=== PATIENT | male | born 1955 | race Caucasian/White ===

== ENCOUNTER 2023-12-04 17:41 | Inpatient (IN) | payer MEDICARE, MEDICAID ==
[2023-12-04 18:42] LABS: #Monocytes 0.3 thou/uL (0.11-0.59); #Neutrophils 18.9 thou/uL (1.40-6.50); %Basophils 0.2 % (0.0-1.0); %Lymphocytes 2.6 % (21.0-51.0); %Monocytes 1.5 % (0.0-10.0); %Neutrophils 94.5 % (42.0-75.0); Hemoglobin 12.4 g/dL (14.0-18.0); Mean Corpuscular HGB CONC 32.6 g/dL (32.0-36.0); Mean Corpuscular Hemoglobin 34.4 pg (27.0-31.0); Mean Corpuscular Volume 105.6 fl (78.0-98.0); Mean Platelet Volume 9.4 fL (7.4-10.4); Platelet Count 307 10x3/uL (130-400); RBC Distribution Width 12.2 % (11.5-14.5); White Blood Cell (WBC) Count 19.9 10x3/uL (4.8-10.8)
[2023-12-04 18:59] LABS: ALT (SGPT) 26 U/L (8-55); AST (SGOT) 17 U/L (5-34); Albumin 3.6 g/dL (3.4-4.8); Alkaline Phosphatase 92 U/L (40-110); Anion Gap 16 mmol/L (10-20); BUN (Urea Nitrogen) 62 mg/dL (8.4-25.7); Bilirubin, Total 0.4 mg/dL (0.2-1.2); Calc. Creatinine Clearance 0 mL/min (70-130); Calcium 8.5 mg/dL (7.8-10.44); Carbon Dioxide 16 mmol/L (23-31); Chloride 109 mmol/L (98-107); Estimated GFR 29; Globulin 3.5 g/dL (2.4-3.5); Glucose 127 mg/dL (80-115); Potassium 5.6 mmol/L (3.5-5.1); Protein, Total 7.1 g/dL (5.8-8.1); Sodium 135 mmol/L (136-145)
[2023-12-04 19:15] LABS: INR-International Normal Ratio 1.2; Prothrombin Time 14.7 sec (12.0-14.7)
[2023-12-04 19:16] LABS: PTT 36.3 sec (22.9-36.1)
[2023-12-04] MEDS ORDERED: Ondansetron ODT 4 MG TAB SL PRN (21:00)
[2023-12-04] MEDS ORDERED: Ondansetron PF 4 MG/2 ML Vial IVP PRN (21:00)
[2023-12-04] MEDS ORDERED: Acetaminophen 325 MG TAB PO PRN (21:00)
[2023-12-04] MEDS ORDERED: Lorazepam 2 MG/ML VIAL SLOW IVP PRN (21:06)
[2023-12-04] MEDS ORDERED: Heparin 10,000 UNITS/ 10 ML VIAL SLOW IVP SCH (21:15)
[2023-12-04] MEDS ORDERED: Heparin 5,000 UNITS/ML VIAL ONE (21:38)
[2023-12-04] MEDS ORDERED: Heparin 25,000 units/D5W 500 ML ONE (21:39)
[2023-12-04 21:47] LABS: Hematocrit 35.2 % (42.0-52.0); Hemoglobin 11.6 g/dL (14.0-18.0); Platelet Count 308 10x3/uL (130-400)
[2023-12-04 22:40] LABS: Bacteria/HPF None Seen HPF (None Seen); Bilirubin Negative (Negative); Blood, Urine Negative (Negative); CAUTI Indications for Culture Alt mental st,lethar; Clarity Clear (Clear); Glucose, Urine (Dipstick) Normal (Negative); Ketone, Urine Negative (Negative); Leukocyte Negative Leu/uL (Negative); Nitrite Negative (Negative); Protein, Urine (Dipstick) Negative (Neg-Trace); RBC/HPF 0-3 HPF (0-3); Specific Gravity, Urine 1.011 (1.002-1.036); Squamous Epithelial None Seen HPF (0-3); Urobilinogen Normal mg/dL (Less than 2); WBC/HPF 0-3 HPF (0-3); pH, Urine 5.5 (5.0-9.0)
[2023-12-04 22:44] LABS: Urine Culture Reflex No No
[2023-12-05] MEDS: Sodium Bicarbonate 150 MEQ in Dextrose 5% in Water 1,000 ML IV SCH (00:21)
[2023-12-05 00:41] VITALS: BMI 26.0
[2023-12-05 04:40] LABS: #Monocytes 0.9 thou/uL (0.11-0.59); #Neutrophils 15.3 thou/uL (1.40-6.50); %Basophils 0.1 % (0.0-1.0); %Lymphocytes 5.8 % (21.0-51.0); %Monocytes 5.2 % (0.0-10.0); %Neutrophils 87.9 % (42.0-75.0); Hemoglobin 12.2 g/dL (14.0-18.0); Mean Corpuscular HGB CONC 32.1 g/dL (32.0-36.0); Mean Corpuscular Hemoglobin 34.9 pg (27.0-31.0); Mean Corpuscular Volume 108.6 fl (78.0-98.0); Mean Platelet Volume 9.3 fL (7.4-10.4); Platelet Count 265 10x3/uL (130-400); RBC Distribution Width 12.3 % (11.5-14.5); White Blood Cell (WBC) Count 17.3 10x3/uL (4.8-10.8)
[2023-12-05 05:03] LABS: Anion Gap 15 mmol/L (10-20); BUN (Urea Nitrogen) 59 mg/dL (8.4-25.7); Calc. Creatinine Clearance 38 mL/min (70-130); Calcium 8.3 mg/dL (7.8-10.44); Carbon Dioxide 19 mmol/L (23-31); Chloride 114 mmol/L (98-107); Estimated GFR 37; Glucose 134 mg/dL (80-115); Potassium 4.6 mmol/L (3.5-5.1); Sodium 143 mmol/L (136-145)
[2023-12-05 05:59] LABS: PTT Greater than 250.0 sec (22.9-36.1)
[2023-12-05 06:11] LABS: Bacteria/HPF None Seen HPF (None Seen); Bilirubin Negative (Negative); Blood, Urine 3+ (Negative); CAUTI Indications for Culture Fever or rigors; Clarity Turbid (Clear); Glucose, Urine (Dipstick) Normal (Negative); Ketone, Urine Negative (Negative); Leukocyte 75 Leu/uL (Negative); Nitrite Negative (Negative); Protein, Urine (Dipstick) 50 mg/dL (Neg-Trace); RBC/HPF Greater than 50 HPF (0-3); Specific Gravity, Urine 1.011 (1.002-1.036); Squamous Epithelial None Seen HPF (0-3); Urobilinogen Normal mg/dL (Less than 2); WBC/HPF Greater than 50 HPF (0-3); pH, Urine 5.5 (5.0-9.0)
[2023-12-05 06:12] LABS: Urine Culture Reflex Yes Yes
[2023-12-05] MEDS: Ipratropium/Albuterol 3 ML NEB ONE (11:25)
[2023-12-05] MEDS: methylPREDNISolone Sod Succ 40 MG VIAL IVP SCH ×2 (11:25→18:19)
[2023-12-05] MEDS: Ipratropium/Albuterol 3 ML NEB NEB SCH (13:05)
[2023-12-05] MEDS: guaiFENesin/Codeine 200 mg/20 mg 10 ml Cup PO PRN (18:19)
[2023-12-05] MEDS: Albuterol 2.5 MG (3 mL) NEB NEB PRN (20:01)
[2023-12-05] MEDS: Hydrocortisone 1% Cream 30 GM TUBE TOP SCH (20:28)
[2023-12-05] MEDS: Heparin 25,000 units/D5W 500 ML IVPB SCH (20:32)
[2023-12-06 04:33] LABS: #Monocytes 0.3 thou/uL (0.11-0.59); #Neutrophils 12.7 thou/uL (1.40-6.50); %Basophils 0.2 % (0.0-1.0); %Lymphocytes 4.5 % (21.0-51.0); %Monocytes 2.1 % (0.0-10.0); %Neutrophils 91.5 % (42.0-75.0); Hematocrit 37.4 % (42.0-52.0); Hemoglobin 12.1 g/dL (14.0-18.0); Mean Corpuscular HGB CONC 32.4 g/dL (32.0-36.0); Mean Corpuscular Hemoglobin 34.9 pg (27.0-31.0); Mean Corpuscular Volume 107.8 fl (78.0-98.0); Mean Platelet Volume 10.2 fL (7.4-10.4); Platelet Count 258 10x3/uL (130-400); RBC Distribution Width 12.2 % (11.5-14.5); Red Blood Cell (RBC) Count 3.47 mill/uL (4.70-6.10); White Blood Cell (WBC) Count 13.9 10x3/uL (4.8-10.8)
[2023-12-06 04:59] LABS: Anion Gap 17 mmol/L (10-20); BUN (Urea Nitrogen) 37 mg/dL (8.4-25.7); Calc. Creatinine Clearance 65 mL/min (70-130); Calcium 8.6 mg/dL (7.8-10.44); Carbon Dioxide 19 mmol/L (23-31); Chloride 109 mmol/L (98-107); Estimated GFR 71; Glucose 172 mg/dL (80-115); Potassium 3.8 mmol/L (3.5-5.1); Sodium 141 mmol/L (136-145)
[2023-12-06] MEDS: Levothyroxine Sodium 112 MCG TAB PO SCH (05:44)
[2023-12-06] MEDS: Ondansetron ODT 4 MG TAB PO PRN (08:54)
[2023-12-06] MEDS: Cyanocobalamin (Vitamin B-12) 1,000 MCG TAB PO SCH (08:54)
[2023-12-06] MEDS: Loratadine 10 MG TAB PO SCH (08:54)
[2023-12-06] MEDS: Folic Acid 1 MG TAB PO SCH (08:54)
[2023-12-06] MEDS: Ferrous Sulfate 325 MG TAB PO SCH (08:54)
[2023-12-06] MEDS ORDERED: predniSONE 50 MG TAB PO SCH (09:00)
[2023-12-06] MEDS: Loperamide HCl 2 MG CAP PO PRN (09:10)
[2023-12-06 10:40] LABS: PTT 128.3 sec (22.9-36.1)
[2023-12-06] MEDS: cefTRIAXone\\ROCEPHIN 1 GM in Sodium Chloride 0.9% 100 ML IVPB SCH (12:09)
[2023-12-06] MEDS: Apixaban 5 MG TAB PO SCH (20:02)
[2023-12-06 21:33] LABS: Hemoglobin 12.3 g/dL (14.0-18.0); Platelet Count 316 10x3/uL (130-400)
[2023-12-07 04:41] LABS: #Monocytes 0.6 thou/uL (0.11-0.59); #Neutrophils 17.1 thou/uL (1.40-6.50); %Basophils 0.2 % (0.0-1.0); %Eosinophils 0.1 % (0.0-10.0); %Lymphocytes 4.2 % (21.0-51.0); %Monocytes 2.9 % (0.0-10.0); %Neutrophils 91.2 % (42.0-75.0); Hematocrit 34.5 % (42.0-52.0); Hemoglobin 11.5 g/dL (14.0-18.0); Mean Corpuscular HGB CONC 33.3 g/dL (32.0-36.0); Mean Corpuscular Hemoglobin 34.7 pg (27.0-31.0); Mean Corpuscular Volume 104.2 fl (78.0-98.0); Mean Platelet Volume 10.8 fL (7.4-10.4); Platelet Count 296 10x3/uL (130-400); RBC Distribution Width 11.9 % (11.5-14.5); Red Blood Cell (RBC) Count 3.31 mill/uL (4.70-6.10); White Blood Cell (WBC) Count 18.8 10x3/uL (4.8-10.8)
[2023-12-07 05:20] LABS: Anion Gap 16 mmol/L (10-20); BUN (Urea Nitrogen) 34 mg/dL (8.4-25.7); Calc. Creatinine Clearance 73 mL/min (70-130); Calcium 8.5 mg/dL (7.8-10.44); Carbon Dioxide 21 mmol/L (23-31); Chloride 110 mmol/L (98-107); Estimated GFR 82; Glucose 151 mg/dL (80-115); Potassium 4.2 mmol/L (3.5-5.1); Sodium 143 mmol/L (136-145)
[2023-12-07] MEDS: Ondansetron PF 4 MG/2 ML Vial IVP PRN (19:02)
[2023-12-07] MEDS ORDERED: Sodium Chloride 0.9% 1,000 ML IV SCH ×2 (19:45→21:15)
[2023-12-07 19:56] LABS: Hematocrit 38.7 % (42.0-52.0); Hemoglobin 12.7 g/dL (14.0-18.0)
[2023-12-07 20:00] LABS: Platelet Count 420 10x3/uL (130-400)
[2023-12-07 20:19] LABS: Anion Gap 14 mmol/L (10-20); BUN (Urea Nitrogen) 35 mg/dL (8.4-25.7); Calc. Creatinine Clearance 72 mL/min (70-130); Calcium 8.8 mg/dL (7.8-10.44); Carbon Dioxide 22 mmol/L (23-31); Chloride 105 mmol/L (98-107); Estimated GFR 81; Glucose 153 mg/dL (80-115); Potassium 3.6 mmol/L (3.5-5.1); Sodium 137 mmol/L (136-145)
[2023-12-07] MEDS: Pantoprazole 40 MG VIAL IVP SCH (21:24)
[2023-12-07] MEDS: Sodium Chloride 0.9% 1,000 ML IV SCH ×2 (21:25→23:22)
[2023-12-07] MEDS: Pantoprazole 80 MG, Admixture Fee 1 EACH in Sodium Chloride 0.9% 100 ML IVPB SCH (23:18)
[2023-12-07 23:22] LABS: INR-International Normal Ratio 1.6; Prothrombin Time 18.9 sec (12.0-14.7)
[2023-12-07 23:23] LABS: PTT 34.1 sec (22.9-36.1)
[2023-12-07 23:44] LABS: Magnesium 1.8 mg/dL (1.6-2.6); Phosphorus 2.7 mg/dL (2.3-4.7)
[2023-12-08 05:05] LABS: #Monocytes 0.7 thou/uL (0.11-0.59); #Neutrophils 17.5 thou/uL (1.40-6.50); %Basophils 0.2 % (0.0-1.0); %Lymphocytes 3.7 % (21.0-51.0); %Monocytes 3.7 % (0.0-10.0); %Neutrophils 90.3 % (42.0-75.0); Hematocrit 34.2 % (42.0-52.0); Hemoglobin 11.4 g/dL (14.0-18.0); Mean Corpuscular HGB CONC 33.3 g/dL (32.0-36.0); Mean Corpuscular Hemoglobin 34.8 pg (27.0-31.0); Mean Corpuscular Volume 104.3 fl (78.0-98.0); Mean Platelet Volume 9.8 fL (7.4-10.4); Platelet Count 334 10x3/uL (130-400); RBC Distribution Width 11.9 % (11.5-14.5); Red Blood Cell (RBC) Count 3.28 mill/uL (4.70-6.10); White Blood Cell (WBC) Count 19.3 10x3/uL (4.8-10.8)
[2023-12-08 05:44] LABS: Phosphorus 2.7 mg/dL (2.3-4.7)
[2023-12-08 05:46] LABS: Anion Gap 10 mmol/L (10-20); BUN (Urea Nitrogen) 37 mg/dL (8.4-25.7); Calc. Creatinine Clearance 74 mL/min (70-130); Calcium 8.2 mg/dL (7.8-10.44); Carbon Dioxide 23 mmol/L (23-31); Chloride 109 mmol/L (98-107); Estimated GFR 83; Glucose 144 mg/dL (80-115); Potassium 3.4 mmol/L (3.5-5.1); Sodium 139 mmol/L (136-145)
[2023-12-08] MEDS ORDERED: Piperacillin/Tazobactam 3.375 GM in Sodium Chloride 0.9% 100 ML IVPB SCH (10:45)
[2023-12-08] MEDS: Piperacillin/Tazobactam 3.375 GM in Sodium Chloride 0.9% 100 ML IVPB SCH ×2 (13:05→17:28)
[2023-12-08] MEDS: Potassium Chloride 20 MEQ TAB PO SCH (17:29)
[2023-12-08] MEDS: Potassium Chloride 20 MEQ in Premix 1 BAG IVPB SCH (17:48)
[2023-12-08] MEDS ORDERED: Lidocaine 1% PF 5 ML VIAL ONE (18:47)
[2023-12-08] MEDS ORDERED: PROPOFOL 40 ML ONE (18:47)
[2023-12-08] MEDS ORDERED: Rocuronium Bromide 10 MG/ML (10ML VIAL) ONE (19:01)
[2023-12-08] MEDS ORDERED: fentaNYL 50 mcg/mL 1 mL Vial ONE (19:01)
[2023-12-08] MEDS ORDERED: Dexamethasone 20 MG/5 ML VIAL ONE (19:01)
[2023-12-08] MEDS ORDERED: Ondansetron PF 4 MG/2 ML Vial ONE (19:01)
[2023-12-08] MEDS ORDERED: ePHEDrine Sulfate 50 MG/10 ML VIAL ONE (19:48)
[2023-12-08] MEDS ORDERED: Sodium Chloride 0.9% 100 ML ONE (19:50)
[2023-12-08] MEDS ORDERED: Phenylephrine 10 MG/ML VIAL ONE (19:50)
[2023-12-08] MEDS ORDERED: SUGAMMADEX SODIUM 200 MG/2 ML VIAL ONE (20:20)
[2023-12-08] MEDS ORDERED: Promethazine HCl 25 MG/ML VIAL IM PRN (20:36)
[2023-12-08] MEDS ORDERED: Ondansetron HCl/PF 4 MG/2 ML Vial IVP PRN (20:36)
[2023-12-08] MEDS: Bisacodyl 10 MG SUPP PR SCH (21:21)
[2023-12-08 21:43] LABS: Hematocrit 34.7 % (42.0-52.0); Hemoglobin 11.5 g/dL (14.0-18.0); Platelet Count 299 10x3/uL (130-400)
[2023-12-08] MEDS: FLU VACC QS2023(65UP)/MF59C/PF 60 MCG/0.5 ML SYRINGE IM ONE (21:43)
[2023-12-09 04:16] LABS: #Basophils 0.1 thou/uL (0.0-0.2); #Monocytes 0.7 thou/uL (0.11-0.59); #Neutrophils 17.3 thou/uL (1.40-6.50); %Basophils 0.3 % (0.0-1.0); %Lymphocytes 4.6 % (21.0-51.0); %Monocytes 3.7 % (0.0-10.0); %Neutrophils 89.3 % (42.0-75.0); Hematocrit 34.2 % (42.0-52.0); Mean Corpuscular HGB CONC 32.2 g/dL (32.0-36.0); Mean Corpuscular Hemoglobin 34.3 pg (27.0-31.0); Mean Corpuscular Volume 106.5 fl (78.0-98.0); Mean Platelet Volume 9.6 fL (7.4-10.4); Platelet Count 284 10x3/uL (130-400); Red Blood Cell (RBC) Count 3.21 mill/uL (4.70-6.10); White Blood Cell (WBC) Count 19.4 10x3/uL (4.8-10.8)
[2023-12-09 04:31] LABS: Anion Gap 9 mmol/L (10-20); BUN (Urea Nitrogen) 30 mg/dL (8.4-25.7); Calc. Creatinine Clearance 82 mL/min (70-130); Calcium 7.1 mg/dL (7.8-10.44); Carbon Dioxide 22 mmol/L (23-31); Chloride 119 mmol/L (98-107); Estimated GFR 93; Glucose 121 mg/dL (80-115); Potassium 3.8 mmol/L (3.5-5.1); Sodium 146 mmol/L (136-145)
[2023-12-09] MEDS: Piperacillin/Tazobactam 3.375 GM in Sodium Chloride 0.9% 100 ML IVPB SCH (05:21)
[2023-12-09] MEDS ORDERED: Ipratropium/Albuterol 3 ML NEB NEB PRN (07:56)
[2023-12-09] MEDS ORDERED: Bisacodyl 10 MG SUPP PR SCH (09:00)
[2023-12-09] MEDS: Dextrose 5% in Water 1,000 ML IV SCH (14:00)
[2023-12-10 07:35] LABS: #Eosinphils 0.2 thou/uL (0.0-0.7); #Monocytes 0.9 thou/uL (0.11-0.59); #Neutrophils 14.7 thou/uL (1.40-6.50); %Basophils 0.2 % (0.0-1.0); %Eosinophils 1.3 % (0.0-10.0); %Lymphocytes 11.8 % (21.0-51.0); %Monocytes 4.9 % (0.0-10.0); %Neutrophils 80.3 % (42.0-75.0); Hematocrit 29.9 % (42.0-52.0); Mean Corpuscular HGB CONC 33.4 g/dL (32.0-36.0); Mean Corpuscular Hemoglobin 34.6 pg (27.0-31.0); Mean Corpuscular Volume 103.5 fl (78.0-98.0); Mean Platelet Volume 9.5 fL (7.4-10.4); Platelet Count 228 10x3/uL (130-400); RBC Distribution Width 11.9 % (11.5-14.5); Red Blood Cell (RBC) Count 2.89 mill/uL (4.70-6.10); White Blood Cell (WBC) Count 18.3 10x3/uL (4.8-10.8)
[2023-12-10 07:45] LABS: Chloride 112 mmol/L (98-107); Potassium 2.8 mmol/L (3.5-5.1); Sodium 140 mmol/L (136-145)
[2023-12-10 07:46] LABS: Glucose 112 mg/dL (80-115)
[2023-12-10 07:47] LABS: Anion Gap 8 mmol/L (10-20); Carbon Dioxide 23 mmol/L (23-31)
[2023-12-10 07:49] LABS: Calc. Creatinine Clearance 98 mL/min (70-130); Estimated GFR 98
[2023-12-10 07:50] LABS: BUN (Urea Nitrogen) 16 mg/dL (8.4-25.7)
[2023-12-10 07:56] LABS: Calcium 6.4 mg/dL (7.8-10.44)
[2023-12-10] MEDS: CALCIUM GLUC 1 GM/NS 50 ML 1 GM in Premix 1 BAG IVPB SCH (10:32)
[2023-12-10] MEDS: Potassium Chloride 20 MEQ TAB PO SCH (10:34)
[2023-12-10] MEDS: Calcium Gluc 4.6 MEQ/10 ML (100 MG/ML) SLOW IVP ONE (10:44)
[2023-12-11 10:38] LABS: #Eosinphils 0.6 thou/uL (0.0-0.7); #Monocytes 0.7 thou/uL (0.11-0.59); #Neutrophils 21.1 thou/uL (1.40-6.50); %Basophils 0.1 % (0.0-1.0); %Eosinophils 2.3 % (0.0-10.0); %Lymphocytes 6.2 % (21.0-51.0); %Monocytes 2.9 % (0.0-10.0); %Neutrophils 87.3 % (42.0-75.0); Hematocrit 32.8 % (42.0-52.0); Hemoglobin 11.1 g/dL (14.0-18.0); Mean Corpuscular HGB CONC 33.8 g/dL (32.0-36.0); Mean Corpuscular Hemoglobin 34.7 pg (27.0-31.0); Mean Corpuscular Volume 102.5 fl (78.0-98.0); Mean Platelet Volume 9.6 fL (7.4-10.4); Platelet Count 237 10x3/uL (130-400); RBC Distribution Width 11.6 % (11.5-14.5); White Blood Cell (WBC) Count 24.2 10x3/uL (4.8-10.8)
[2023-12-11 11:01] LABS: Anion Gap 8 mmol/L (10-20); BUN (Urea Nitrogen) 10 mg/dL (8.4-25.7); Calc. Creatinine Clearance 107 mL/min (70-130); Carbon Dioxide 23 mmol/L (23-31); Chloride 108 mmol/L (98-107); Estimated GFR 101; Glucose 118 mg/dL (80-115); Potassium 2.9 mmol/L (3.5-5.1); Sodium 136 mmol/L (136-145)
[2023-12-11 11:04] LABS: Calcium 6.7 mg/dL (7.8-10.44)
[2023-12-11] MEDS ORDERED: Electrolyte Replacement Protocol 1 EACH FS SCH (12:45)
[2023-12-11] MEDS: Potassium Bicarbonate/Cit Ac 20 MEQ TAB PO SCH (14:28)
[2023-12-11 15:46] LABS: Magnesium 1.5 mg/dL (1.6-2.6)
[2023-12-11 16:50] LABS: Bacteria/HPF None Seen HPF (None Seen); Bilirubin Negative (Negative); Blood, Urine 3+ (Negative); CAUTI Indications for Culture Acute Hematuria; Clarity Turbid (Clear); Glucose, Urine (Dipstick) 50 mg/dL (Negative); Ketone, Urine 10 mg/dL (Negative); Leukocyte 25 Leu/uL (Negative); Nitrite Negative (Negative); Protein, Urine (Dipstick) 200 mg/dL (Neg-Trace); RBC/HPF Greater than 50 HPF (0-3); Specific Gravity, Urine 1.017 (1.002-1.036); Squamous Epithelial None Seen HPF (0-3); Urobilinogen Normal mg/dL (Less than 2); pH, Urine 6.5 (5.0-9.0)
[2023-12-11 16:53] LABS: Urine Culture Reflex No No
[2023-12-11] MEDS: Calcium Carbonate 500 MG TAB PO SCH (17:05)
[2023-12-11 17:07] LABS: Thyroid Stimulating Hormone 5.0587 uIU/mL (0.35-4.94); Vitamin D, 25 Hydroxy 5.7 ng/ml (> 30.0)
[2023-12-11] MEDS: Famotidine 20 MG TAB PO SCH (20:31)
[2023-12-12 07:27] LABS: #Basophils 0.1 thou/uL (0.0-0.2); #Eosinphils 0.6 thou/uL (0.0-0.7); #Monocytes 0.9 thou/uL (0.11-0.59); #Neutrophils 20.8 thou/uL (1.40-6.50); %Basophils 0.2 % (0.0-1.0); %Eosinophils 2.6 % (0.0-10.0); %Lymphocytes 7.6 % (21.0-51.0); %Monocytes 3.8 % (0.0-10.0); %Neutrophils 84.5 % (42.0-75.0); Hematocrit 30.9 % (42.0-52.0); Hemoglobin 10.7 g/dL (14.0-18.0); Mean Corpuscular HGB CONC 34.6 g/dL (32.0-36.0); Mean Corpuscular Hemoglobin 34.4 pg (27.0-31.0); Mean Platelet Volume 10.3 fL (7.4-10.4); Platelet Count 231 10x3/uL (130-400); RBC Distribution Width 11.6 % (11.5-14.5); Red Blood Cell (RBC) Count 3.11 mill/uL (4.70-6.10); White Blood Cell (WBC) Count 24.6 10x3/uL (4.8-10.8)
[2023-12-12 07:45] LABS: Mean Corpuscular Volume 99.4 fl (78.0-98.0)
[2023-12-12 07:53] LABS: Anion Gap 14 mmol/L (10-20); BUN (Urea Nitrogen) 9 mg/dL (8.4-25.7); Calc. Creatinine Clearance 125 mL/min (70-130); Carbon Dioxide 20 mmol/L (23-31); Chloride 107 mmol/L (98-107); Estimated GFR 106; Glucose 82 mg/dL (80-115); Potassium 3.2 mmol/L (3.5-5.1); Sodium 138 mmol/L (136-145)
[2023-12-12 08:04] LABS: Calcium 6.7 mg/dL (7.8-10.44)
[2023-12-12 08:51] LABS: Magnesium 1.4 mg/dL (1.6-2.6)
[2023-12-12 08:58] LABS: Phosphorus 1.5 mg/dL (2.3-4.7)
[2023-12-12] MEDS: Calcitriol 0.25 MCG CAP PO SCH (09:15)
[2023-12-12] MEDS: Calcium Carbonate 500 MG ChewTAB PO SCH (09:15)
[2023-12-12] MEDS: Ergocalciferol 1.25 MG(50,000 UNITS) CAP PO SCH (09:15)
[2023-12-12] MEDS: PHOS-NAK 1 PKT PACK PO SCH (09:43)
[2023-12-12] MEDS: Potassium Chloride 20 MEQ TAB PO SCH (10:02)
[2023-12-12] MEDS: Magnesium Sulfate In Water 4 GM in Premix 1 BAG IVPB SCH (10:24)
[2023-12-13] MEDS: Levothyroxine Sodium 125 MCG TAB PO SCH (05:30)
[2023-12-13 05:43] LABS: #Eosinphils 0.7 thou/uL (0.0-0.7); #Neutrophils 18.3 thou/uL (1.40-6.50); %Basophils 0.2 % (0.0-1.0); %Eosinophils 3.2 % (0.0-10.0); %Lymphocytes 8.7 % (21.0-51.0); %Monocytes 4.6 % (0.0-10.0); %Neutrophils 81.5 % (42.0-75.0); Hematocrit 29.2 % (42.0-52.0); Mean Corpuscular HGB CONC 34.2 g/dL (32.0-36.0); Mean Corpuscular Hemoglobin 34.4 pg (27.0-31.0); Mean Corpuscular Volume 100.3 fl (78.0-98.0); Mean Platelet Volume 10.6 fL (7.4-10.4); Platelet Count 244 10x3/uL (130-400); RBC Distribution Width 11.9 % (11.5-14.5); Red Blood Cell (RBC) Count 2.91 mill/uL (4.70-6.10); White Blood Cell (WBC) Count 22.5 10x3/uL (4.8-10.8)
[2023-12-13 06:16] LABS: Anion Gap 13 mmol/L (10-20); BUN (Urea Nitrogen) 7 mg/dL (8.4-25.7); Calc. Creatinine Clearance 125 mL/min (70-130); Carbon Dioxide 23 mmol/L (23-31); Chloride 106 mmol/L (98-107); Estimated GFR 106; Glucose 95 mg/dL (80-115); Phosphorus 1.8 mg/dL (2.3-4.7); Potassium 3.6 mmol/L (3.5-5.1); Sodium 138 mmol/L (136-145)
[2023-12-13 06:32] LABS: Calcium 6.7 mg/dL (7.8-10.44)
[2023-12-13 06:36] LABS: Free T4 (Free Thyroxine) 0.96 ng/dL (0.70-1.48)
[2023-12-13] MEDS: PHOS-NAK 1 PKT PACK PO SCH (09:26)
[2023-12-13] MEDS: Calcium Gluc 4.6 MEQ/10 ML (100 MG/ML) SLOW IVP ONE (16:14)
[2023-12-13] MEDS: CALCIUM GLUC 1 GM/NS 50 ML 1 GM in Premix 1 BAG IVPB SCH (17:12)
[2023-12-14 05:00] LABS: #Eosinphils 0.6 thou/uL (0.0-0.7); #Monocytes 1.2 thou/uL (0.11-0.59); #Neutrophils 13.4 thou/uL (1.40-6.50); %Basophils 0.2 % (0.0-1.0); %Eosinophils 3.1 % (0.0-10.0); %Lymphocytes 13.3 % (21.0-51.0); %Monocytes 6.6 % (0.0-10.0); %Neutrophils 75.2 % (42.0-75.0); Hematocrit 26.9 % (42.0-52.0); Hemoglobin 8.9 g/dL (14.0-18.0); Mean Corpuscular HGB CONC 33.1 g/dL (32.0-36.0); Mean Corpuscular Volume 102.7 fl (78.0-98.0); Mean Platelet Volume 10.2 fL (7.4-10.4); Platelet Count 266 10x3/uL (130-400); RBC Distribution Width 12.1 % (11.5-14.5); Red Blood Cell (RBC) Count 2.62 mill/uL (4.70-6.10); White Blood Cell (WBC) Count 17.8 10x3/uL (4.8-10.8)
[2023-12-14 05:19] LABS: Anion Gap 9 mmol/L (10-20); BUN (Urea Nitrogen) 5 mg/dL (8.4-25.7); Calc. Creatinine Clearance 145 mL/min (70-130); Calcium 7.2 mg/dL (7.8-10.44); Carbon Dioxide 27 mmol/L (23-31); Chloride 106 mmol/L (98-107); Estimated GFR 110; Glucose 98 mg/dL (80-115); Potassium 3.2 mmol/L (3.5-5.1); Sodium 139 mmol/L (136-145)
[2023-12-14] MEDS: Potassium Chloride 20 MEQ TAB PO SCH (08:39)
[2023-12-14] MEDS: Magnesium 2 GM/50 ML(in water) 2 GM in Premix 1 BAG IVPB SCH (11:33)
[2023-12-14] MEDS: Furosemide 20 MG (2 mL) VIAL SLOW IVP SCH (11:33)
[2023-12-14] MEDS: Acetaminophen 325 MG TAB PO PRN (20:24)
[2023-12-15 05:12] LABS: #Eosinphils 0.5 thou/uL (0.0-0.7); #Monocytes 1.1 thou/uL (0.11-0.59); #Neutrophils 11.9 thou/uL (1.40-6.50); %Basophils 0.1 % (0.0-1.0); %Eosinophils 3.2 % (0.0-10.0); %Lymphocytes 13.2 % (21.0-51.0); %Monocytes 7.1 % (0.0-10.0); %Neutrophils 74.9 % (42.0-75.0); Hematocrit 27.8 % (42.0-52.0); Hemoglobin 9.2 g/dL (14.0-18.0); Mean Corpuscular HGB CONC 33.1 g/dL (32.0-36.0); Mean Corpuscular Hemoglobin 34.5 pg (27.0-31.0); Mean Corpuscular Volume 104.1 fl (78.0-98.0); Mean Platelet Volume 10.1 fL (7.4-10.4); Platelet Count 272 10x3/uL (130-400); RBC Distribution Width 12.3 % (11.5-14.5); Red Blood Cell (RBC) Count 2.67 mill/uL (4.70-6.10); White Blood Cell (WBC) Count 15.9 10x3/uL (4.8-10.8)
[2023-12-15 05:51] LABS: Anion Gap 9 mmol/L (10-20); BUN (Urea Nitrogen) 5 mg/dL (8.4-25.7); Calc. Creatinine Clearance 142 mL/min (70-130); Calcium 7.9 mg/dL (7.8-10.44); Carbon Dioxide 26 mmol/L (23-31); Chloride 105 mmol/L (98-107); Estimated GFR 110; Glucose 102 mg/dL (80-115); Magnesium 1.9 mg/dL (1.6-2.6); Potassium 3.4 mmol/L (3.5-5.1); Sodium 137 mmol/L (136-145)
[2023-12-15 05:57] LABS: Phosphorus 1.9 mg/dL (2.3-4.7)
[2023-12-15] MEDS: Magnesium 2 GM/50 ML(in water) 2 GM in Premix 1 BAG IVPB SCH (09:42)
[2023-12-15] MEDS: Potassium Chloride 20 MEQ TAB PO SCH (09:44)
[2023-12-15] MEDS: PHOS-NAK 1 PKT PACK PO SCH (09:46)
[2023-12-15] MEDS: Furosemide 40 MG (4 mL) VIAL SLOW IVP SCH (11:17)
[2023-12-15 14:49] LABS: Potassium 3.6 mmol/L (3.5-5.1)
[2023-12-15] MEDS: Apixaban 5 MG TAB PO SCH (20:23)
[2023-12-16 06:26] LABS: #Eosinphils 0.4 thou/uL (0.0-0.7); #Monocytes 1.3 thou/uL (0.11-0.59); #Neutrophils 11.9 thou/uL (1.40-6.50); %Basophils 0.1 % (0.0-1.0); %Eosinophils 2.2 % (0.0-10.0); %Lymphocytes 12.8 % (21.0-51.0); %Monocytes 8.5 % (0.0-10.0); %Neutrophils 75.3 % (42.0-75.0); Hematocrit 26.9 % (42.0-52.0); Hemoglobin 8.9 g/dL (14.0-18.0); Mean Corpuscular HGB CONC 33.1 g/dL (32.0-36.0); Mean Corpuscular Hemoglobin 34.9 pg (27.0-31.0); Mean Corpuscular Volume 105.5 fl (78.0-98.0); Mean Platelet Volume 9.4 fL (7.4-10.4); Platelet Count 317 10x3/uL (130-400); RBC Distribution Width 12.7 % (11.5-14.5); Red Blood Cell (RBC) Count 2.55 mill/uL (4.70-6.10); White Blood Cell (WBC) Count 15.9 10x3/uL (4.8-10.8)
[2023-12-16 06:44] LABS: Anion Gap 11 mmol/L (10-20); BUN (Urea Nitrogen) 6 mg/dL (8.4-25.7); Calc. Creatinine Clearance 134 mL/min (70-130); Calcium 7.8 mg/dL (7.8-10.44); Carbon Dioxide 27 mmol/L (23-31); Chloride 104 mmol/L (98-107); Estimated GFR 108; Glucose 90 mg/dL (80-115); Magnesium 1.9 mg/dL (1.6-2.6); Phosphorus 2.6 mg/dL (2.3-4.7); Potassium 4.2 mmol/L (3.5-5.1); Sodium 138 mmol/L (136-145)
[2023-12-16] MEDS: Magnesium 2 GM/50 ML(in water) 2 GM in Premix 1 BAG IVPB SCH (08:36)
[2023-12-16] MEDS: Furosemide 40 MG (4 mL) VIAL SLOW IVP SCH (11:09)
[2023-12-17 05:06] LABS: #Eosinphils 0.4 thou/uL (0.0-0.7); #Monocytes 1.3 thou/uL (0.11-0.59); #Neutrophils 10.6 thou/uL (1.40-6.50); %Basophils 0.2 % (0.0-1.0); %Eosinophils 2.5 % (0.0-10.0); %Lymphocytes 13.3 % (21.0-51.0); %Monocytes 8.9 % (0.0-10.0); %Neutrophils 73.9 % (42.0-75.0); Hematocrit 27.5 % (42.0-52.0); Hemoglobin 9.1 g/dL (14.0-18.0); Mean Corpuscular HGB CONC 33.1 g/dL (32.0-36.0); Mean Corpuscular Hemoglobin 34.6 pg (27.0-31.0); Mean Corpuscular Volume 104.6 fl (78.0-98.0); Mean Platelet Volume 9.5 fL (7.4-10.4); Platelet Count 351 10x3/uL (130-400); RBC Distribution Width 12.9 % (11.5-14.5); Red Blood Cell (RBC) Count 2.63 mill/uL (4.70-6.10); White Blood Cell (WBC) Count 14.4 10x3/uL (4.8-10.8)
[2023-12-17 06:17] LABS: Anion Gap 15 mmol/L (10-20); BUN (Urea Nitrogen) 8 mg/dL (8.4-25.7); Calc. Creatinine Clearance 134 mL/min (70-130); Calcium 8.3 mg/dL (7.8-10.44); Carbon Dioxide 24 mmol/L (23-31); Chloride 102 mmol/L (98-107); Estimated GFR 108; Glucose 106 mg/dL (80-115); Potassium 3.5 mmol/L (3.5-5.1); Sodium 137 mmol/L (136-145)
[2023-12-17] MEDS: Potassium Chloride 20 MEQ TAB PO SCH (09:08)
[2023-12-17] MEDS: Potassium Bicarbonate/Cit Ac 20 MEQ TAB PO SCH (10:51)
[2023-12-17 16:31] VITALS: BP 124/76; TEMP 98.2
== END 2023-12-17 17:22 | DRG 299 ==
LOC: ERS 17:41 → 2NO 20:51 → T4-B 12-11 22:07
PROVIDERS: ADMIT Student in an Organized Health Care Education/Training Program; ATTEND Family Medicine
PROC: 0D9P80Z Drainage of Rectum with Drainage Device, Via Natural or Artificial Opening Endoscopic (ICD-10-PCS; principal; 2023-12-08)
DX: I82.411 Acute embolism and thrombosis of right femoral vein (principal); J96.01 Acute respiratory failure with hypoxia; N17.9 Acute kidney failure, unspecified; E87.20 Acidosis, unspecified; K59.39 Other megacolon; N13.30 Unspecified hydronephrosis; I82.431 Acute embolism and thrombosis of right popliteal vein; K59.81 Ogilvie syndrome; E03.9 Hypothyroidism, unspecified; G80.9 Cerebral palsy, unspecified; R33.9 Retention of urine, unspecified; D72.829 Elevated white blood cell count, unspecified; E87.5 Hyperkalemia; Z66 Do not resuscitate; E83.51 Hypocalcemia; D63.8 Anemia in other chronic diseases classified elsewhere; N47.1 Phimosis; E87.6 Hypokalemia; D12.2 Benign neoplasm of ascending colon; R31.0 Gross hematuria; N18.30 Chronic kidney disease, stage 3 unspecified; R31.9 Hematuria, unspecified; Q90.9 Down syndrome, unspecified; Z79.899 Other long term (current) drug therapy; Z79.890 Hormone replacement therapy; Z90.49 Acquired absence of other specified parts of digestive tract
CPT/HCPCS: 36415; 36416; 51702; 71045; 74018; 74022; 74176; 76770; 80048; 80053; 81001; 82274; 82306; 83605; 83615; 83735; 84100; 84439; 84443; 84481; 85025; 85384; 85610; 85730; 86850; 86900; 86901; 87040; 87086; 87633; 87798; 93005; 93970; 93975; 94640; 96374; C9113; J0613; J0696; J1100; J1644; J1940; J2371; J2405; J2543; J2704; J2920; J3010; J3475; J3480; J3490; J7050; J7070; J7611; J7620; Q0162